=== PATIENT | female | born 1935 | race Caucasian/White ===

== ENCOUNTER 2020-09-15 15:51 | Emergency (ER) | payer MEDICARE ==
[~2020-09-15] VITALS: Ht 172.7 cm; Wt 69.8 kg
[2020-09-15 16:04] VITALS: BP 148/71
[2020-09-15] MEDS ORDERED: IV NORMAL SALINE 500ML 500 ML IV ONE (16:15)
[2020-09-15] MEDS ORDERED: IV NORMAL SALINE 1,000ML 1,000 ML IV ONE (16:30)
--- NOTE | 2020-09-15 16:45 | PHYS DOC ---
Past History Past Medical History: Hypertension Past Surgical History: Other Additional Past Surgical Histo: pacemaker Alcohol Use: None General Adult EDM: Chief Complaint: HEAT EXPOSURE HPI: HPI: Patient is a 84-year-old female who was brought here by EMS from home after she was being exposed to heat for a long time. Patient was in an argument with her son, she walked outside and locked herself in the car. It was really hot outside, she could not turn the car on because she did not have the hitchcock. She was SITTING in the HOT CAR for 45 minutes, refused to get out. Finally she c kenisha out and was soaking in sweat. Patient feels weak and dizzy. EMS were called to take her here for evaluation. Patient denies any chest pain, no abdominal pain, no nausea vomiting. Patient denies suicidal ideation, denies homicidal ideation. Review of Systems: Review of Systems: Constitutional: Denies fever or chills Eyes: Denies change in visual acuity HENT: Denies nasal congestion or sore throat Respiratory: Denies cough or shortness of breath Cardiovascular: Denies chest pain or edema GI: Denies abdominal pain, nausea, vomiting, bloody stools or diarrhea : Denies dysuria Musculoskeletal: Denies back pain or joint pain Integument: No rash Neurologic: Denies headache, focal weakness or sensory changes Endocrine: Denies polyuria or polydipsia Lymphatic: Denies swollen glands Psychiatric: Denies depression or anxiety Current Medications: Current Meds: Current Medications Medications (Trade) Dose Ordered Sig/Renato Start Time Stop Time Status Last Admin Dose Admin Sodium Chloride 1,000 ml @ 1,000 mls/hr 1X ONCE 09/15/20 16:30 09/15/20 17:29 09/15/20 16:37 1,000 MLS/HR Allergies: Allergies: Allergies Coded Allergies Type Severity Reaction Last Updated Verified Sulfa (Sulfonamide Antibiotics) Allergy Unknown 09/15/20 Yes Physical Exam: PE: Constitutional: Well developed, well nourished, no acute distress, non-toxic appearance. [] HENT: Normocephalic, atraumatic, bilateral external ears normal, oropharynx moist, no oral exudates, nose normal. [] Eyes: PERRLA, EOMI, conjunctiva normal, no discharge. [] Neck: Normal range of motion, no tenderness, supple, no stridor. [] Cardiovascular:Heart rate regular rhythm, no murmur [] Lungs & Thorax: Bilateral breath sounds clear to auscultation [] Abdomen: Bowel sounds normal, soft, no tenderness, no masses, no pulsatile masses. [] Skin: Warm AND SWEATY, no erythema, no rash. Back: No tenderness, no CVA tenderness. [] Extremities: No tenderness, no cyanosis, no clubbing, ROM intact, no edema. [] Neurologic: Alert and oriented X 3, normal motor function, normal sensory function, no focal deficits noted. [] Psychologic: Affect normal, judgement normal, mood normal. [] Current Patient Data: Labs: Laboratory Tests Test 09/15/20 16:40 White Blood Count 6.8 x10^3/uL Red Blood Count 3.74 x10^6/uL Hemoglobin 10.8 g/dL Hematocrit 32.7 % Mean Corpuscular Volume 87 fL Mean Corpuscular Hemoglobin 29 pg Mean Corpuscular Hemoglobin Concent 33 g/dL Red Cell Distribution Width 19.4 % Platelet Count 227 x10^3/uL Neutrophils (%) (Auto) 68 % Lymphocytes (%) (Auto) 20 % Monocytes (%) (Auto) 9 % Eosinophils (%) (Auto) 2 % Basophils (%) (Auto) 1 % Neutrophils # (Auto) 4.7 x10^3uL Lymphocytes # (Auto) 1.4 x10^3/uL Monocytes # (Auto) 0.6 x10^3/uL Eosinophils # (Auto) 0.1 x10^3/uL Basophils # (Auto) 0.1 x10^3/uL Urine Collection Type Unknown Urine Color Tiffany Urine Clarity Clear Urine pH 5.0 Urine Specific [place] 1.025 Urine Protein 30 mg/dl Urine Glucose (UA) Neg mg/dL Urine Ketones (Stick) Trace mg/dL Urine Blood Trace Urine Nitrite Neg Urine Bilirubin Small Urine Urobilinogen Dipstick 1.0 mg/dL Urine Leukocyte Esterase Neg Urine RBC Rare /HPF Urine WBC Rare /HPF Urine Bacteria Few /HPF Sodium Level 142 mmol/L Potassium Level 2.6 mmol/L Chloride Level 103 mmol/L Carbon Dioxide Level 29 mmol/L Anion Gap 10 Blood Urea Nitrogen 30 mg/dL Creatinine 2.0 mg/dL Estimated GFR (Cockcroft-Gault) 23.8 BUN/Creatinine Ratio 15 Glucose Level 125 mg/dL Calcium Level 7.7 mg/dL Magnesium Level 1.6 mg/dL Total Bilirubin 0.7 mg/dL Aspartate Amino Transf (AST/SGOT) 24 U/L Alanine Aminotransferase (ALT/SGPT) 21 U/L Alkaline Phosphatase 115 U/L Total Protein 7.6 g/dL Albumin 3.7 g/dL Albumin/Globulin Ratio 0.9 Current Medications Medications (Trade) Dose Ordered Sig/Renato Route PRN Reason Start Time Stop Time Status Last Admin Dose Admin Sodium Chloride 500 ml @ 0 mls/hr 1X ONCE IV 09/15/20 16:15 09/15/20 16:25 DC Sodium Chloride 1,000 ml @ 1,000 mls/hr 1X ONCE IV 09/15/20 16:30 09/15/20 17:29 DC 09/15/20 16:37 Magnesium Sulfate 50 ml @ 25 mls/hr 1X ONCE IV 09/15/20 17:30 09/15/20 19:29 09/15/20 17:38 Calcium Gluconate (Calcium Gluconate) 1,000 mg 1X ONCE IV 09/15/20 17:30 09/15/20 17:31 DC 09/15/20 17:37 Potassium Phosphate (K-Phos Original) 500 mg 1X PO 09/15/20 17:30 09/15/20 17:33 DC Potassium Chloride (Klor-Con) 60 meq 1X ONCE PO 09/15/20 17:30 09/15/20 17:33 DC Potassium Chloride (Klor-Con) 20 meq STK-MED ONCE PO 09/15/20 17:31 09/15/20 17:32 DC Potassium Chloride (Klor-Con) 60 meq 1X ONCE PO 09/15/20 17:45 09/15/20 17:46 09/15/20 17:37 Potassium Phosphate (K-Phos Original) 500 mg 1X ONCE PO 09/15/20 17:45 09/15/20 17:46 Cancel Vital Signs: Vital Signs Date Time Temp Pulse Resp B/P (MAP) Pulse Ox O2 Delivery O2 Flow Rate FiO2 09/15/20 16:04 98.9 91 18 148/71 98 EKG: EKG: [] Radiology/Procedures: Radiology/Procedures: [] Heart Score: C/O Chest Pain: N/A Risk Factors: Risk Factors: DM, Current or recent (<one month) smoker, HTN, HLP, family history of CAD, obesity. Risk Scores: Score 0 - 3: 2.5% MACE over next 6 weeks - Discharge Home Score 4 - 6: 20.3% MACE over next 6 weeks - Admit for Clinical Observation Score 7 - 10: 72.7% MACE over next 6 weeks - Early Invasive Strategies Course & Med Decision Making: Course & Med Decision Making Pertinent Labs and Imaging studies reviewed. (See chart for details) Patient is a 84-year-old female who presented to ER for evaluation of heat exposure, patient was seen in car outside for 45 minutes, refused to get up because she was mad at her son. Patient was found to be dehydrated, her magnesium level, calcium level, potassium level were low. Patient was given 1 L normal saline IV bolus. Patient was given 2 g of magnesium sulfate IV, 1 g of calcium gluconate IV, 80 mEq of potassium p.o. I recommended that patient need to be admitted overnight for observation but patient refused to be admitted to the hospital. Her son was here with her and he will take her home. Patient recently moved into this area, she will need to find a family physician in this area for follow-up. Renetta Disclaimer: Dragon Disclaimer: This electronic medical record was generated, in whole or in part, using a voice recognition dictation system. Departure Departure: Impression: Primary Impression: Hypokalemia Additional Impressions: Hypomagnesemia Hypocalcemia Dehydration Renal insufficiency Heat exposure Medication refill Disposition: HOME / SELF CARE / HOMELESS Condition: IMPROVED Referrals: JESUS DIAZ MD Please call this primary care physician for follow up this week. Patient Instructions: Chronic Renal Insufficiency, Dehydration, Adult, Heat Disorders, Hypokalemia, Medication Refill, Emergency Department Scripts Hydroxyzine Pamoate (VISTARIL) 25 Mg Capsule 1 CAP PO TID PRN for ANXIETY, #30 CAP Prov: LEV SEN DO 09/15/20 LEV SEN DO Sep 15, 2020 16:45
[2020-09-15 17:02] LABS: BASO # 0.1 x10^3/uL (0.0-0.2); BASO % 1 % (0-3); EOS # 0.1 x10^3/uL (0.0-0.7); EOS % 2 % (0-3); HEMATOCRIT 32.7 % (36.0-47.0); HEMOGLOBIN 10.8 g/dL (12.0-15.5); LYMPH # 1.4 x10^3/uL (1.0-4.8); LYMPH % 20 % (24-48); MEAN CORPUSCULAR HEMOGLOBIN 29 pg (25-35); MEAN CORPUSCULAR HGB CONC 33 g/dL (31-37); MEAN CORPUSCULAR VOLUME 87 fL (79-100); MONO # 0.6 x10^3/uL (0.0-1.1); MONO % 9 % (0-9); NEUT # 4.7 x10^3uL (1.8-7.7); NEUT % 68 % (31-73); PLATELET COUNT 227 x10^3/uL (140-400); RED BLOOD COUNT 3.74 x10^6/uL (3.50-5.40); RED CELL DISTRIBUTION WIDTH 19.4 % (11.5-14.5); WHITE BLOOD COUNT 6.8 x10^3/uL (4.0-11.0)
[2020-09-15 17:08] LABS: BILIRUBIN,URINE SMALL (NEG); CLARITY,URINE CLEAR; COLOR,URINE AMBER; GLUCOSE,URINE NEG (NEG)
[2020-09-15 17:09] LABS: NITRITE,URINE NEG (NEG)
[2020-09-15 17:10] LABS: BACTERIA,URINE FEW /HPF (0-FEW); RBC,URINE RARE /HPF (0-2); WBC,URINE RARE /HPF (0-4)
[2020-09-15 17:16] LABS: ALBUMIN 3.7 g/dL (3.4-5.0); ALBUMIN/GLOBULIN RATIO 0.9 (1.0-1.7); CALCIUM 7.7 mg/dL (8.5-10.1); GFR 23.8; MAGNESIUM 1.6 mg/dL (1.8-2.4); TOTAL BILIRUBIN 0.7 mg/dL (0.2-1.0); TOTAL PROTEIN 7.6 g/dL (6.4-8.2)
[2020-09-15 17:23] LABS: POTASSIUM 2.6 mmol/L (3.5-5.1)
[2020-09-15] MEDS ORDERED: MAGNESIUM SULFATE 2GM 50 ML IV ONE (17:30)
[2020-09-15] MEDS ORDERED: POTASSIUM CHLORIDE 10 MEQ TABLET.ER. PO ONE (17:30)
[2020-09-15] MEDS ORDERED: CALCIUM GLUCONATE 1,000 MG/10 ML VIAL IV ONE (17:30)
[2020-09-15] MEDS ORDERED: POTASSIUM PHOSPHATE,MONOBASIC 500 MG TABLET. PO SCH (17:30)
[2020-09-15] MEDS ORDERED: POTASSIUM CHLORIDE 20 MEQ TABLET.ER. PO ONE ×2 (17:31→17:45)
[2020-09-15] MEDS ORDERED: POTASSIUM PHOSPHATE,MONOBASIC 500 MG TABLET. PO ONE (17:45)
[2020-09-15] MEDS ORDERED: HYDR25CA PO (17:50)
== END 2020-09-15 19:01 | disposition home or self-care (01) ==
LOC: ER 15:51
DX: E87.6 Hypokalemia (principal); T67.5XXA Heat exhaustion, unspecified, initial encounter; E83.42 Hypomagnesemia; E83.51 Hypocalcemia; E86.0 Dehydration; N28.9 Disorder of kidney and ureter, unspecified; Z76.0 Encounter for issue of repeat prescription; I10 Essential (primary) hypertension; Z95.0 Presence of cardiac pacemaker; Z88.2 Allergy status to sulfonamides; X58.XXXA Exposure to other specified factors, initial encounter; Y93.89 Activity, other specified; Y92.89 Other specified places as the place of occurrence of the external cause; Y99.8 Other external cause status
CPT/HCPCS: 36415; 80053; 81001; 83735; 85025; 96361; 96365; 96375; 99284; J0610; J3475; J7030

== ENCOUNTER 2020-10-18 18:22 | Emergency (ER) | payer MEDICARE ==
[~2020-10-18] VITALS: Ht 172.7 cm; Wt 69.8 kg
[~2020-10-18 18:22] MED LIST: HYDR25CA PO
--- NOTE | 2020-10-18 19:13 | PHYS DOC ---
Past History Past Medical History: Hypertension Past Surgical History: Other Additional Past Surgical Histo: pacemaker Alcohol Use: None General Adult EDM: Chief Complaint: GI PROBLEM HPI: HPI: Patient is a 84 year old female who presents with above hx and complaints of food bolus. States Dr. Mckoy told her go to ED for CT .? Up on checking room. Pt.apparently had eloped from ED. Review of Systems: Review of Systems: Constitutional: Denies fever or chills Eyes: Denies change in visual acuity HENT: Denies nasal congestion or sore throat Respiratory: Denies cough or shortness of breath Cardiovascular: Denies chest pain or edema GI: Denies abdominal pain, nausea, vomiting, bloody stools or diarrhea Complaints of difficulty swallowing food. : Denies dysuria Musculoskeletal: Denies back pain or joint pain Integument: Denies rash Neurologic: Denies headache, focal weakness or sensory changes Endocrine: Denies polyuria or polydipsia Lymphatic: Denies swollen glands Psychiatric: Denies depression or anxiety Family History: Family History: Noncontributory Current Medications: Current Meds: See nursing for home meds Allergies: Allergies: Allergies Coded Allergies Type Severity Reaction Last Updated Verified Sulfa (Sulfonamide Antibiotics) Allergy Unknown 09/15/20 Yes Physical Exam: PE: Patient eloped from the emergency department Current Patient Data: Vital Signs: Vital Signs Date Time Temp Pulse Resp B/P (MAP) Pulse Ox O2 Delivery O2 Flow Rate FiO2 10/18/20 19:06 97.7 86 18 147/82 97 EKG: EKG: [] Radiology/Procedures: Radiology/Procedures: [] Heart Score: C/O Chest Pain: N/A Risk Factors: Risk Factors: DM, Current or recent (<one month) smoker, HTN, HLP, family history of CAD, obesity. Risk Scores: Score 0 - 3: 2.5% MACE over next 6 weeks - Discharge Home Score 4 - 6: 20.3% MACE over next 6 weeks - Admit for Clinical Observation Score 7 - 10: 72.7% MACE over next 6 weeks - Early Invasive Strategies Course & Med Decision Making: Course & Med Decision Making Pertinent Labs and Imaging studies reviewed. (See chart for details) Patient not found in room. [] Renetta Disclaimer: Renetta Disclaimer: This electronic medical record was generated, in whole or in part, using a voice recognition dictation system. Departure Departure: Referrals: KYE SINGLETARY MD (PCP) LENCHO DIAZ MD Oct 18, 2020 19:13
[2020-10-18 20:57] VITALS: BP 146/62
== END 2020-10-18 22:00 | disposition left against medical advice (07) ==
LOC: ER 18:22
DX: R13.10 Dysphagia, unspecified (principal); I10 Essential (primary) hypertension; Z95.0 Presence of cardiac pacemaker; Z88.2 Allergy status to sulfonamides; Z53.21 Procedure and treatment not carried out due to patient leaving prior to being seen by health care provider
CPT/HCPCS: 99281